=== PATIENT | male | born 1955 | race Native Hawaiian/Other Pacific Islander ===

== ENCOUNTER 2019-05-21 08:59 | Outpatient (CLI) | payer OTHER | END 2019-05-21 20:21 | disposition home or self-care (01) | LOC: US 08:59 | DX: R10.84 Generalized abdominal pain (principal) ==

== ENCOUNTER 2019-12-21 08:22 | Outpatient (CLI) | payer OTHER | END 2019-12-21 19:18 | disposition home or self-care (01) | LOC: NM 08:22 | DX: M89.8X8 Other specified disorders of bone, other site (principal); M86.8X8 Other osteomyelitis, other site | CPT/HCPCS: A9561 ==

== ENCOUNTER → 2020-01-10 | Outpatient (CLI) | payer OTHER | LOC: CT 09:51 | DX: R60.0 Localized edema (principal); R20.0 Anesthesia of skin; I73.89 Other specified peripheral vascular diseases; M79.605 Pain in left leg; L81.8 Other specified disorders of pigmentation | CPT/HCPCS: 36415; 82565; 84520; Q9963 ==

== ENCOUNTER 2020-02-18 10:02 | Outpatient (CLI) | payer OTHER | END 2020-02-18 23:59 | disposition home or self-care (01) | LOC: MRI 10:02 | DX: M86.9 Osteomyelitis, unspecified (principal); I73.9 Peripheral vascular disease, unspecified; M79.672 Pain in left foot ==

== ENCOUNTER 2020-10-08 08:26 | Outpatient (CLI) | payer OTHER | END 2020-10-08 22:05 | disposition home or self-care (01) | LOC: INF 08:26 | PROVIDERS: ATTEND Internal Medicine | DX: Z23 Encounter for immunization (principal) | CPT/HCPCS: 96372 ==

== ENCOUNTER 2020-10-30 08:22 | Outpatient (CLI) | payer OTHER | END 2020-10-30 22:12 | disposition home or self-care (01) | LOC: INF 08:22 | PROVIDERS: ATTEND Internal Medicine | DX: Z23 Encounter for immunization (principal) | CPT/HCPCS: 96372 ==